=== PATIENT | female | born 1980 | race Caucasian/White ===

== ENCOUNTER 2017-04-30 22:11 | Emergency (ER) | payer SELFPAY ==
[~2017-04-30] VITALS: Ht 170.2 cm; Wt 48.3 kg
[2017-04-30 22:31] VITALS: BP 96/59
--- NOTE | 2017-05-01 01:42 | NUR ---
PT AMBULATED TO BED 11.
--- NOTE | 2017-05-01 01:45 | NUR ---
36 Y/O F BIBA W/C/O MID ABD PAIN X 3 WKS ON AND OFF, PT STATES TOOK MEDS TWO DAYS AGO TO COMPLETE -SHE DOES NOT REMEMBER THE NAME OF THEM. NO BLEEDING PRESENT OR S/S OF DISTRESS NOTED. ER MD MADE AWARE.
--- NOTE | 2017-05-01 03:20 | NUR ---
PT ASLEEP RESTING IN BED. NO S/S OF DISTRESS NOTED, WILL CONT TO MONITOR.
[2017-05-01] MEDS ORDERED: NACL 0.9% 1,000 ML IV ONE (03:55)
--- NOTE | 2017-05-01 05:46 | NUR ---
PT CONTINUES ASLEEP, NO S/S OF DISTRESS NOTED, VSS. WILL CONT TO MONITOR.
[2017-05-01 06:18] VITALS: BP 109/65
--- NOTE | 2017-05-01 06:18 | NUR ---
Patient discharged with v/s stable. Written and verbal after care instructions given and explained. Patient verbalized understanding. Ambulatory with steady gait. All questions addressed prior to discharge. Advised to follow up with PMD.
== END 2017-05-01 06:18 | disposition home or self-care (01) ==
LOC: MED 22:11
DX: F10.129 Alcohol abuse with intoxication, unspecified (principal); G92 Toxic encephalopathy; F17.210 Nicotine dependence, cigarettes, uncomplicated
CPT/HCPCS: 96360; 99284